=== PATIENT | female | born 1995 | race Caucasian/White ===

== ENCOUNTER 2018-03-14 15:28 | Outpatient (CLI) | payer BC | END 2018-03-14 15:29 | disposition home or self-care (01) | LOC: BICRAD 15:28 | PROVIDERS: ATTEND Family Medicine | DX: M25.552 Pain in left hip (principal) ==

== ENCOUNTER 2018-12-08 07:34 | Outpatient (CLI) | payer OTHER ==
--- NOTE | 2018-12-08 08:12 | ULT ---
Sonogram right upper quadrant HISTORY: Right upper quadrant pain. FINDINGS: Gallbladder has a normal appearance without evidence of stones. Common duct is 0.2 cm. Live r unremarkable without focal mass or intrahepatic biliary dilatation. No free fluid. IMPRESSION: No evidence of gallstones. Normal exam.
== END 2018-12-08 07:35 | disposition home or self-care (01) ==
LOC: ULT 07:34
PROVIDERS: ATTEND Family Medicine
DX: K21.9 Gastro-esophageal reflux disease without esophagitis (principal)
CPT/HCPCS: 76705

== ENCOUNTER 2019-02-20 14:27 | Inpatient (IN) | payer OTHER ==
[~2019-02-20 14:27] MED LIST: Lidocaine 2% MPF 10 ML AMP (For Epidural Use) ONE
[2019-02-20 15:18] VITALS: BMI 29.6
[2019-02-20] MEDS ORDERED: Methylergonovine 0.2 MG/ML VIAL IM PRN (15:20)
[2019-02-20] MEDS ORDERED: HYDROcodone/Acetaminophen 5/325 mg Tablet PO PRN (15:20)
[2019-02-20] MEDS ORDERED: Promethazine HCl 25 MG/ML VIAL IM PRN ×2 (15:20→20:36)
[2019-02-20] MEDS ORDERED: NS / Oxytocin 40 units/1000ml 1,000 ML IV PRN (15:20)
[2019-02-20] MEDS ORDERED: Diphenoxylate HCl/Atropine Tablet PO PRN (15:20)
[2019-02-20] MEDS ORDERED: hydrALAZINE 20 MG/ML VIAL SLOW IVP PRN (15:20)
[2019-02-20] MEDS ORDERED: Ibuprofen 800 MG TAB PO PRN (15:20)
[2019-02-20] MEDS ORDERED: Misoprostol 200 MCG TAB PR PRN (15:20)
[2019-02-20] MEDS ORDERED: Lidocaine 1% (PF) 30 ML VIAL SC PRN (15:20)
[2019-02-20] MEDS ORDERED: Carboprost 250 MCG/ML AMP IM PRN (15:20)
[2019-02-20] MEDS ORDERED: Ondansetron PF 4 MG/2 ML Vial IVP PRN ×2 (15:20→20:36)
[2019-02-20] MEDS ORDERED: Butorphanol Tartrate 1 MG/ML VIAL SLOW IVP PRN (15:20)
[2019-02-20] MEDS ORDERED: NS w/ Oxytocin 10 units 500 ML IV SCH ×2 (15:30)
[2019-02-20] MEDS: Lactated Ringer's 1,000 ML IV SCH ×2 (15:45→20:37)
[2019-02-20 16:27] LABS: Hemoglobin 10.8 g/dL (12.0-16.0); Mean Corpuscular HGB CONC 33.3 g/dL (32.0-36.0); Mean Corpuscular Hemoglobin 29.3 pg (27.0-31.0); Mean Corpuscular Volume 87.9 fL (78.0-98.0); Mean Platelet Volume 8.2 fL (7.4-10.4); Platelet Count 214 thou/uL (130-400); RBC Distribution Width 11.5 % (11.5-14.5); Red Blood Cell (RBC) Count 3.68 mill/uL (4.20-5.40); White Blood Cell (WBC) Count 10.2 thou/uL (4.8-10.8)
[2019-02-20 17:01] LABS: Syphilis Antibody Nonreactive (Nonreactive); Syphilis Antibody Index 0.07 S/CO (<1.00 Non-Reactive)
[2019-02-20 17:02] LABS: HBSAg Index 0.25 S/CO (0-0.99); Hep B Surf Ag Non-Reactive S/CO (NonReactive)
[2019-02-20] MEDS ORDERED: Fentanyl 4 mcg/Bup 0.1% Cadd 100 ML ONE (19:18)
[2019-02-20] MEDS ORDERED: Lidocaine 1.5%/Epinephrine 1:200,000 5 ML AMPUL IJ ONE (20:14)
[2019-02-20] MEDS ORDERED: ePHEDrine/0.9% NaCl/PF SYRINGE 50 mg/10 ml SLOW IVP PRN (20:36)
[2019-02-20] MEDS ORDERED: Naloxone HCl 0.4 mg/ml Vial IVP PRN ×2 (20:36)
[2019-02-20] MEDS ORDERED: Lactated Ringer's 500 ML IV PRN (20:36)
[2019-02-20] MEDS ORDERED: Fentanyl 4 mcg/Bupivacaine 0.1% Cassette 100 ML EPIDURAL SCH (20:45)
[2019-02-20] MEDS ORDERED: Communication Order-Pharmacy FS SCH (20:45)
[2019-02-21] MEDS ORDERED: Carboprost 250 MCG/ML AMP IM PRN (00:18)
[2019-02-21] MEDS ORDERED: hydrALAZINE 20 MG/ML VIAL SLOW IVP PRN ×2 (00:18→09:00)
[2019-02-21] MEDS ORDERED: Diphenoxylate HCl/Atropine Tablet PO PRN (00:18)
[2019-02-21] MEDS ORDERED: Misoprostol 200 MCG TAB PR PRN (00:19)
[2019-02-21] MEDS ORDERED: Methylergonovine 0.2 MG/ML VIAL IM PRN (00:19)
[2019-02-21] MEDS ORDERED: Ibuprofen 800 MG TAB PO PRN (00:19)
[2019-02-21] MEDS ORDERED: Lidocaine 1% (PF) 30 ML VIAL SC PRN (00:19)
[2019-02-21] MEDS ORDERED: HYDROcodone/Acetaminophen 5/325 mg Tablet PO PRN ×2 (00:19→08:51)
[2019-02-21] MEDS ORDERED: Ampicillin 2 GM in Sodium Chloride 0.9% 100 ML IVPB SCH (01:00)
[2019-02-21] MEDS ORDERED: Gentamicin Sulfate 300 MG in Sodium Chloride 0.9% 100 ML IVPB SCH (01:30)
[2019-02-21] MEDS ORDERED: Acetaminophen 500 MG TAB PO SCH (01:45)
[2019-02-21] MEDS ORDERED: Bicitra 30 ML UDCUP ONE (03:49)
[2019-02-21] MEDS ORDERED: Azithromycin 500 MG VIAL ONE (03:53)
[2019-02-21] MEDS ORDERED: CEFAZOLIN 2 GM in Premix Bag 1 BAG IVPB SCH (04:00)
[2019-02-21] MEDS ORDERED: Azithromycin 500 MG in Sodium Chloride 0.9% 250 ML 250 ML IVPB SCH (04:00)
[2019-02-21] MEDS ORDERED: Bicitra 30 ML UDCUP PO SCH (04:00)
[2019-02-21] MEDS ORDERED: Lidocaine 2% 10 ML INJ ONE (04:04)
[2019-02-21] MEDS ORDERED: Oxytocin 10 UNITS/ML VIAL ONE (04:04)
[2019-02-21] MEDS ORDERED: MORPHINE 5 MG/10 ML PF VIAL ONE (04:04)
[2019-02-21] MEDS ORDERED: Ondansetron PF 4 MG/2 ML Vial ONE (04:17)
[2019-02-21] MEDS ORDERED: Methylergonovine 0.2 MG/ML VIAL ONE (04:32)
[2019-02-21] MEDS ORDERED: Fentanyl 100 MCG/2 ML VIAL ONE ×2 (04:49→04:58)
[2019-02-21] MEDS ORDERED: Naloxone HCl 0.4 mg/ml Vial IV PRN (04:55)
[2019-02-21] MEDS ORDERED: L&D-Morphine 4 MG/ML VIAL SLOW IVP PRN (04:55)
[2019-02-21] MEDS ORDERED: HYDROmorphone 2 MG/ML VIAL SLOW IVP PRN (04:55)
[2019-02-21] MEDS ORDERED: Ondansetron PF 4 MG/2 ML Vial IVP PRN ×2 (04:55→08:51)
[2019-02-21] MEDS ORDERED: diphenhydrAMINE 50 MG/ML VIAL IVP PRN (04:55)
[2019-02-21] MEDS ORDERED: Promethazine HCl 25 MG SUPP PR PRN (04:55)
[2019-02-21] MEDS ORDERED: Meperidine HCl/PF 25 MG/ML VIAL SLOW IVP PRN (04:55)
[2019-02-21] MEDS ORDERED: Ondansetron HCl/PF 4 MG/2 ML Vial IVP PRN (04:55)
[2019-02-21] MEDS ORDERED: Promethazine HCl 25 MG/ML VIAL IM PRN ×2 (04:55→08:51)
[2019-02-21] MEDS ORDERED: Ketorolac Tromethamine 30 MG/ML VIAL IVP PRN (04:55)
[2019-02-21] MEDS ORDERED: Naloxone HCl 0.4 mg/ml Vial IVP PRN ×2 (04:55)
[2019-02-21] MEDS ORDERED: Communication Order-Pharmacy FS SCH (05:00)
[2019-02-21] MEDS ORDERED: Ketorolac Tromethamine 30 MG/ML VIAL IVP SCH (05:00)
[2019-02-21] MEDS ORDERED: Ketorolac Tromethamine 30 MG/ML VIAL ONE (05:22)
[2019-02-21] MEDS ORDERED: metroNIDAZOLE 500 MG in Premix Bag 1 BAG IVPB SCH (06:00)
--- NOTE | 2019-02-21 06:03 | OP ---
DATE OF PROCEDURE: 02/21/2019 SURGEON: Yomi Samayoa DO. DOOR FITTER SURGEON: Yomi Samayoa DO PROCEDURE PERFORMED: Primary low transverse section. PREOPERATIVE DIAGNOSES: 1. Term intrauterine . 2. Arrest of descent. 3. Chorioamnionitis. POSTOPERATIVE DIAGNOSES: 1. Term intrauterine . 2. Arrest of descent. 3. Chorioamnionitis. ANESTHESIA: Spinal epidural. INDICATIONS: The patient is a 23-year-old, G1, P0 female who was diagnosed with arrest of descent after pushing for over 3 hours with no descent past 0 station. DESCRIPTION OF PROCEDURE: After risks, benefits, alternatives were explained to the patient, she gave informed consent. Preoperative antibiotics included Ancef 2 g IV in addition to 500 azithromycin and Flagyl IV. Additionally, the patient was given a dose of ampicillin, gentamicin approximately 2 hours prior to the procedure. The patient was taken operating room, placed in the supine position with a left tilt and prepped and draped in usual sterile fashion. A Pfannenstiel incision was made with a scalpel and carried down to the level of fascia which was sharply nicked. The fascia cut was extended bilaterally with Parra scissors. The inferior and superior edges of the cut fascial edges were elevated with Nadira clamps and underlying rectus muscles were sharply and bluntly dissected free. The recti were divided digitally and retracted manually. The peritoneum was entered bluntly and retracted manually. A bladder blade was placed. A bladder flap was created with Metzenbaum scissors. A low transverse score was made with a scalpel and the uterus was entered midline with the scalpel. Meconium stained amniotic fluid was seen. The hysterotomy was extended manually. Then, infant was noted to be vertex and easily delivered by fundal pressure. Mouth and nares were bulb suctioned. The cord was clamped and cut and grossly normal male infant was handed to the waiting nurse. Cord blood was obtained. The placenta was then spontaneously delivered and found to be intact with three-vessel cord and sent for pathology for review. The uterus was externalized and the endometrium was curetted with a dry lap. Methergine was given x1 for uterine atony with subsequent firming of the uterus. The bladder blade was replaced and the uterus was closed with a running locking 0 Vicryl suture in addition to two [id number] 0 Vicryl sutures. Following the abdomen was irrigated with saline and suctioned free of clots, Seprafilm was then placed over the anterior portion of the uterus and subsequently, the uterus was internalized and hysterotomy was again noted to be hemostatic. The peritoneum was approximated with a 3-0 Vicryl suture in running fashion. The fascia was closed with a running nonlocking 0 PDS suture. The subcutaneous tissue was irrigated and there were no bleeders. The subcutaneous tissue was approximated with three simple interrupted 3-0 Vicryl sutures. Skin was approximated with rhea and pressure dressing was placed. All counts were correct. The patient tolerated the procedure well and was taken to the recovery room in stable condition. ESTIMATED BLOOD LOSS: 850 mL. COMPLICATIONS: None. SPECIMENS: Cord blood sent to lab for blood type. Placenta sent for pathology review. FINDINGS: Grossly normal male infant with Apgars of 9 and 9. Time of delivery 4:30 am on 02/21/2019. Grossly normal placenta with three vessel cord was sent for pathology review. DRAINS: Jones to gravity draining clear urine. Job ID: [id number] [facility]
[2019-02-21] MEDS ORDERED: Bisacodyl 10 MG SUPP PR PRN (08:51)
[2019-02-21] MEDS ORDERED: diphenhydrAMINE 25 MG CAP PO PRN (08:51)
[2019-02-21] MEDS ORDERED: NS / Oxytocin 40 units/1000ml 1,000 ML IV SCH (08:51)
[2019-02-21] MEDS ORDERED: Lanolin Ointment 7 GM TUBE TOP PRN (08:51)
[2019-02-21] MEDS ORDERED: Adacel (T-DAP) 0.5 ML SYRINGE IM ONE (08:51)
[2019-02-21] MEDS ORDERED: Meperidine HCl/PF 25 MG/ML VIAL IM PRN (08:51)
[2019-02-21] MEDS: Docusate Calcium (SURFAK) 240 MG CAP PO SCH ×2 (10:40→22:42)
[2019-02-21] MEDS: Lactated Ringer's 1,000 ML IV SCH (10:41)
[2019-02-21] MEDS: Ferrous Sulfate 325 MG TAB PO SCH ×2 (10:41→22:43)
[2019-02-21] MEDS: Prenatal Vitamin 1 TAB PO SCH (10:41)
[2019-02-21] MEDS: Ketorolac Tromethamine 30 MG/ML VIAL IVP SCH ×3 (12:16→23:49)
[2019-02-21] MEDS: metroNIDAZOLE 500 MG in Premix Bag 1 BAG IVPB SCH ×2 (15:15→23:43)
[2019-02-21] MEDS: CEFAZOLIN 2 GM in Sodium Chloride 0.9% 100 ML IVPB SCH ×2 (16:13→22:13)
[2019-02-21] MEDS: Simethicone Chewable 80 MG TAB PO PRN (22:14)
[2019-02-22] MEDS ORDERED: Gentamicin Sulfate 300 MG in Sodium Chloride 0.9% 100 ML IVPB SCH (01:30)
[2019-02-22] MEDS: CEFAZOLIN 2 GM in Sodium Chloride 0.9% 100 ML IVPB SCH (05:41)
[2019-02-22] MEDS: Ketorolac Tromethamine 30 MG/ML VIAL IVP SCH (05:44)
[2019-02-22] MEDS: Ibuprofen 800 MG TAB PO SCH ×3 (05:47→20:57)
[2019-02-22] MEDS: Simethicone Chewable 80 MG TAB PO PRN ×3 (06:40→20:58)
[2019-02-22] MEDS: metroNIDAZOLE 500 MG in Premix Bag 1 BAG IVPB SCH (06:41)
[2019-02-22 06:47] LABS: Hemoglobin 8.5 g/dL (12.0-16.0); Mean Corpuscular HGB CONC 32.4 g/dL (32.0-36.0); Mean Corpuscular Hemoglobin 29.6 pg (27.0-31.0); Mean Corpuscular Volume 91.3 fL (78.0-98.0); Platelet Count 160 thou/uL (130-400); RBC Distribution Width 11.9 % (11.5-14.5); Red Blood Cell (RBC) Count 2.87 mill/uL (4.20-5.40); White Blood Cell (WBC) Count 11.4 thou/uL (4.8-10.8)
[2019-02-22] MEDS: HYDROcodone/Acetaminophen 5/325 mg Tablet PO PRN ×2 (09:56→18:33)
[2019-02-22] MEDS: Prenatal Vitamin 1 TAB PO SCH (09:58)
[2019-02-22] MEDS: Docusate Calcium (SURFAK) 240 MG CAP PO SCH ×2 (09:59→20:57)
[2019-02-22] MEDS: Ferrous Sulfate 325 MG TAB PO SCH ×2 (09:59→20:58)
[2019-02-22] MEDS ORDERED: Sodium Chloride 0.9% 10 ML ONE (14:11)
[2019-02-22] MEDS: CEFAZOLIN 2 GM, IV Admixture Fee-Chemo 1 UNITS in Sodium Chloride 0.9% 100 ML IVPB SCH ×2 (14:12→14:57)
[2019-02-22] MEDS ORDERED: Cephalexin 250 MG CAP PO SCH (15:00)
[2019-02-22] MEDS: metroNIDAZOLE 500 MG TAB PO SCH ×2 (15:48→20:58)
[2019-02-22] MEDS: Cephalexin 250 MG CAP PO SCH ×2 (18:32→20:58)
[2019-02-23] MEDS: Ibuprofen 800 MG TAB PO SCH ×3 (05:06→21:55)
[2019-02-23] MEDS: Ferrous Sulfate 325 MG TAB PO SCH ×2 (09:04→21:56)
[2019-02-23] MEDS: Docusate Calcium (SURFAK) 240 MG CAP PO SCH ×2 (09:05→21:56)
[2019-02-23] MEDS: metroNIDAZOLE 500 MG TAB PO SCH ×3 (09:05→21:56)
[2019-02-23] MEDS: Prenatal Vitamin 1 TAB PO SCH (09:05)
[2019-02-23] MEDS: Cephalexin 250 MG CAP PO SCH ×4 (09:06→21:56)
[2019-02-23] MEDS: HYDROcodone/Acetaminophen 5/325 mg Tablet PO PRN ×2 (10:52→21:54)
[2019-02-24] MEDS: Ibuprofen 800 MG TAB PO SCH ×2 (06:00→14:08)
[2019-02-24] MEDS: HYDROcodone/Acetaminophen 5/325 mg Tablet PO PRN (06:06)
[2019-02-24 08:44] VITALS: BP 117/76; TEMP 98.1
[2019-02-24] MEDS: Docusate Calcium (SURFAK) 240 MG CAP PO SCH (09:47)
[2019-02-24] MEDS: metroNIDAZOLE 500 MG TAB PO SCH (09:47)
[2019-02-24] MEDS: Ferrous Sulfate 325 MG TAB PO SCH (09:47)
[2019-02-24] MEDS: Cephalexin 250 MG CAP PO SCH ×2 (09:47→14:07)
[2019-02-24] MEDS: Prenatal Vitamin 1 TAB PO SCH (09:47)
[2019-02-24] MEDS: Simethicone Chewable 80 MG TAB PO PRN (12:24)
== END 2019-02-24 14:39 | disposition home or self-care (01) | DRG 786 ==
LOC: L&D 14:27 → 3SW 02-21 09:47
PROVIDERS: ADMIT Family Medicine; ATTEND Family Medicine
PROC: 10D00Z1 Extraction of Products of Conception, Low, Open Approach (ICD-10-PCS; principal; 2019-02-21)
PROC: 3E0P05Z Introduction of Adhesion Barrier into Female Reproductive, Open Approach (ICD-10-PCS; 2019-02-21)
DX: O62.1 Secondary uterine inertia (principal); O41.1230 Chorioamnionitis, third trimester, not applicable or unspecified; Z3A.38 38 weeks gestation of pregnancy; Z37.0 Single live birth
CPT/HCPCS: 36415; 51702; 85027; 86780; 86850; 86900; 86901; 87340; 88307; J0290; J0456; J0690; J1580; J1885; J2001; J2210; J2274; J2310; J2405; J2590; J3010; J3490

== ENCOUNTER 2019-05-22 12:26 | Outpatient (CLI) | payer OTHER ==
--- NOTE | 2019-05-22 13:11 | ULT ---
Exam: Transabdominal and endovaginal pelvic ultrasound HISTORY:Pelvic peroneal pain. COMPARISON: None TECHNIQUE: Transabdominal and endovaginal imaging of the pelvis is performed. Ovaries are interrogate d with grayscale, color flow, Doppler imaging and spectral wave form analysis FINDINGS: Uterus: No myometrial masses. Uterus measurin.2 x 4.1 x 5.2 cm. Endometrium: Homogeneous echotexture. Endometrium diameter: 0.3 cm. . Free fluid: None Right ovary: Normal echotexture Right ovary measurement: 1.8 x 2.0 x 1.4 cm Left ovary: Normal echotexture. Left ovary measurements: 1.5 x 2.7 x 1.7 cm Ovarian Doppler: There is vascular flow to the left and right ovary. IMPRESSION: Unremarkable pelvic ultrasound
== END 2019-05-22 12:27 | disposition home or self-care (01) ==
LOC: ULT 12:26
PROVIDERS: ATTEND Family Medicine
DX: R10.2 Pelvic and perineal pain (principal)
CPT/HCPCS: 76856